=== PATIENT | male | born 1970 | race Caucasian/White ===

== ENCOUNTER → 2018-04-24 | Outpatient (CLI) | payer OTHER ==
--- NOTE | 2018-04-24 09:12 | RADIOLOGY REPORT (SQ) ---
EXAM DESCRIPTION: DIAMANTE SWALLOW COMPLETED DATE/TIME: 04/24/2018 8:29 am REASON FOR STUDY: DYSPHAGIA (R13.10) R13.10 DYSPHAGIA, UNSPECIFIED COMPARISON: None. TECHNIQUE: Videofluoroscopic swallowing examination was performed in conjunction with speech patholo gy. Videofluoroscopic imaging was obtained and reviewed and these are the findings: RADIATION DOSE: Fluoro time 2.04 minutes 1 images saved to PACS. LIMITATIONS: None FINDINGS: The patient was brought into the fluoro room and placed upright on a modified barium swall ow chair. The patient was then given multiple consistencies mixed with barium to swallow under live fluoroscopic video guidance. According to the Speech Pathologist there was deep laryngeal penetratio n with trace aspiration identified with thin barium. All other consistencies were swallowed without incident. Please refer to the speech pathology report for further details. IMPRESSION: DEEP LARYNGEAL PENETRATION WITH TRACE ASPIRATION SEEN WITH THIN BARIUM.PLEASE SEE SPEECH PATHOLOGIST REPORT FOR OTHER FINDINGS AND RECOMMENDATIONS. COMMENT: None Quality ID [id number]: Final reports for procedures using fluoroscopy that document radiation exposure allyson rosy, or exposure time and number of fluorographic images (if radiation exposure indices are not avail able) TECHNICAL DOCUMENTATION: JOB ID: [id number] [employer]- All Rights Reserved Reading location - IP/workstation name: [id number]
--- NOTE | 2018-04-24 15:20 | ST Modified Barium Swallow ---
Recommendation - Recommendations Recommendations: No diet change recommendations at this time. Recommend to follow up for dysphagia treatment with current speech therapy to address swallowing deficits in addition to speech treatment. Medical Diagnoses - Medical Diagnoses Medical Diagnosis Description & ICD-10 Code(s): dysphagia R13.10 Other Medical Diagnoses/Co-Morbidities: Parkinson's ST Modified Barium Swallow - General Date: 04/24/18 Referring Physician: Dr. Terry Risks/Precautions: None Date of Onset: 09/15/17 - approximate date of onset Reason for Referral: difficulty swallowing pills, specific foods - History History obtained from: Patient -: Medical - Patient presents with difficulty swallowing due to effects of early Parkinson's. Patient reports that he in 2016 he noticed something wrong with his leg and in December/January of 2017 he noticed difficulty with his speech. He was diagnosed with Parkinson's in September 2017. He reports that he has not noticed any changes with the medication he has been prescribed. Patient reports difficulty swallowing foods (especially peanuts) and pills. Patient denies difficulty swallowing liquids. He is currently being seen in outpatient speech therapy for speech and voice issues. Medications: per patient report: levadopa, carbadopa Allergies: no known allergies - Functional Status Prior Functional Status: INDEPENDENT: feeding - independent Current Functional Limitations: feeding - globus sensation/coughing - Subjective Patient/caregiver goal(s): r/o aspiration Cognitive-Linguistic Function: WNL Speech Intelligibility: WNL Current Nutritional Means: PO Current PO diet: Regular Current symptoms: Coughing, c/o Globus sensation Pain: Patient reports, 0/5 - Objective Assessment: Upright, Left Lateral - Food Trials Used Food trials used: Thin liquids, Pureed, Regular The patient: Was Able to Self Feed, via cup, via spoon - Oral-Motor Skills Laryngeal Function: weak voicing - Assessment Oral prep: Normal Labial closure: Adequate Mastication: Adequate Lingual Movement: Normal Oral stage: Normal for this Procedure - Pharyngeal Stage Initiation of Pharyngeal Stage Reflex: Normal Decreased laryngeal elevation: No Reduced Velopharyngeal Closure: no Reduced pressure generation: No reduced tongue-based retraction: No Pre-swallow pooling in valleculae: None Pre-Swallow pooling in pyriforms: None Reduced Thyro-Hyoid approximation: Yes - mild Reduced epiglottic excursion: No Reduced pharyngeal peristalsis/contraction: No Post-swallow residulas vallecular: Mild Post-Swallow residuals in pyriforms: Mild Reduced Cricopharyngeal opening: No - Fall Risk Assessment Medications/Conditions that increase fall risks include: Antidepressants, sedatives, anti-arrhythmic, diuretic, benzodiazipenes, neuroleptics. BP regulation problems, cardiac problems, balance or gait deficits, neurological problems. Is patient considered at risk for falls: no Fall Risk Actions Taken: No action needed - Behavioral Observations During evaluation process patient: was pleasant, was cooperative, able to answer questions, provided medical history - Treatment / Educational Needs: Treatment/Education Needs: Treatment consisted of patient education on the role of the Speech Pathologist. Patient's plan of care and golas were communicated as well as scheduling and attendance policies. Recommendations for initial home program were shared. Patient demonstrated understanding and verbalized agreement. - Impression/Summary Laryngeal Penetration: Yes, Silent, during swallow Consistency: Thin Tracheal Aspiration: yes, silent, after swallow Productive cough: Yes - with cue Effective Clearing: yes Effective compensatory strategies: throat clear & reswallow Patient presents with: Pharyngeal stage dysph., Mild-Moderate Risk of Aspiration: Moderate Evaluation and Findings: Patient presents with moderate pharyngeal phase dysphagia, characterized by penetration of thin liquids and occasional aspiration of thin liquids (2/5 trials). Trace amounts of thin liquid was seen to aspirate, no reaction seen to aspiration. With cued cough, patient was able to clear aspirated material. Mild residue seen in pharynx with solid trials, able to clear with hard swallow. Recommend that patient follow up with current outpatient speech therapy, patient given hard swallow, throat clear and re- swallow as strategies at this time. - Recommendations NPO: no Solid diet recommendations: Regular Liquid Diet Modification: Thin Strict aspiration precautions: Yes Pt/Family education and followup with MD: Yes Dysphagia therapy with [facility]: dysphagia therapy, f/u with current thera. Recommended techniques: Fully Upright During Meal, Small Bites and Sips Information, Precautions and Recommendations: Patient (Written), Patient (Verbal ) - Time Total Time: 30 - Plan of Care Summary: Continue with current outpatient speech therapy. Patient to follow-up with referring physician: Yes POC Procedures/Codes: pharyngeal exercises, laryngeal exercises, oral motor exercises, pt/family education, MBSS ([id number]) Strategies to optimize patient understanding include:: ongoing assessment of educational needs, implementation of educational strategies, and re-education. - - -: Thank you for the opportunity to work with this patient and his/her family. Should you have any questions about this patient's plan or progress, I can be reached at [phone]. Charge G Code? - - -: No
== END ==
LOC: RAD 07:20
PROVIDERS: ATTEND General Practice
DX: R13.10 Dysphagia, unspecified (principal)
CPT/HCPCS: 74230; 92611; G8996; G8997; G8998